=== PATIENT | female | born 2000 | race Caucasian/White ===

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

== ENCOUNTER 2021-04-22 20:48 | Emergency (ER) | payer SELFPAY ==
[~2021-04-22] VITALS: Ht 177.8 cm; Wt 105.9 kg
[2021-04-22 21:45] VITALS: BP 132/64; PULSE 85; TEMP 98.1
== END 2021-04-22 21:51 | disposition home or self-care (01) ==
LOC: COL.ER 20:48
DX: R22.41 Localized swelling, mass and lump, right lower limb (principal)

== ENCOUNTER → 2021-04-23 | Outpatient (CLI) | payer SELFPAY ==
[~2021-04-23] MED LIST changes: +ZITHROMAX Z PA250 MG PO
== END ==
LOC: COL.VAS 09:18
DX: Z13.6 Encounter for screening for cardiovascular disorders (principal); M79.89 Other specified soft tissue disorders

== ENCOUNTER 2021-08-14 20:26 | Emergency (ER) | payer SELFPAY ==
[~2021-08-14] VITALS: Ht 172.7 cm; Wt 107.7 kg
[~2021-08-14 20:26] MED LIST changes: -ZITHROMAX Z PA250 MG PO
[2021-08-14 21:03] VITALS: TEMP 98.8
[2021-08-14 22:50] LABS: HEMATOCRIT 37.8 % (35.0-45.0); HEMOGLOBIN 12.6 g/dl (12.0-15.0); MEAN CELL VOLUME 89 fl (80.0-95.0); MEAN CORPUSCULAR HEMOGLOBIN 30 pg (26.0-32.0); MEAN CORPUSCULAR HGB CONC 33 g/dl (33.0-37.0); MEAN PLATELET VOLUME 9.3 fl (7.4-10.4); PLATELET COUNT 332 K/mm3 (130-400); RED BLOOD COUNT 4.23 M/mm3 (4.10-5.30); REDCELL DISTRIBUTION WIDTH-CV 12.6 % (11.5-14.5)
[2021-08-14 23:02] LABS: ALANINE AMINOTRANSFERASE 17 U/L (0-55); ALBUMIN 3.8 gm/dL (3.5-5.0); ALKALINE PHOSPHATASE 91 U/L (40-150); ANION GAP 12 mmol/L (7-16); AST,SGOT 27 U/L (5-34); BILIRUBIN,TOTAL 0.2 mg/dL (0.2-1.2); BLOOD UREA NITROGEN 10 mg/dL (7-19); CALCIUM 9.4 mg/dL (8.4-10.2); CARBON DIOXIDE 21 mmol/L (22-29); CHLORIDE 108 mmol/L (98-107); CREATININE, serum 0.92 mg/dL (0.57-1.11); GLUCOSE 88 mg/dL (70-99); POTASSIUM 3.9 mmol/L (3.5-4.5); SODIUM 141 mmol/L (136-145)
[2021-08-14 23:09] LABS: TROPONIN-I < 0.010 ng/mL (0.00-0.033)
[2021-08-14 23:28] LABS: BAND 4 % (0-10); EOSINOPHIL 3 % (0-4); LYMPHOCYTE 32 % (20.0-51.0); NEUTROPHILS 54 % (42.0-75.2); PLATELET ESTIMATE NORMAL (NORMAL)
[2021-08-15] MEDS ORDERED: ZITHROMAX Z PA250 MG PO (00:26)
[2021-08-15 00:36] VITALS: BP 133/76; PULSE 109
== END 2021-08-15 00:36 | disposition home or self-care (01) ==
LOC: COL.ER 20:26
PROVIDERS: Nurse Practitioner
DX: J40 Bronchitis, not specified as acute or chronic (principal); J45.909 Unspecified asthma, uncomplicated; Z20.822 Contact with and (suspected) exposure to COVID-19; Z79.899 Other long term (current) drug therapy